=== PATIENT | male | born 1980 | race Two or more races ===

== ENCOUNTER 2025-05-12 13:06 | Emergency (ER) | payer MEDICAID, SELFPAY ==
[2025-05-12 13:18] VITALS: BP 128/75; PULSE 77; RESP 20; TEMP 36.8; O2SAT 97
--- NOTE | 2025-05-12 13:44 | PD.EDRME ---
Rapid Medical Screening Exam RME Arrival date/time: 05/12/25 13:06 Chief Complaint: Skin/Abscess/Foreign Body Vital signs: Vital Signs Temperature 98.3 F 05/12/25 13:18 Pulse Rate 77 05/12/25 13:18 Respiratory Rate 20 05/12/25 13:18 Blood Pressure 128/75 05/12/25 13:18 Pulse Oximetry (%) 97 05/12/25 13:18 Oxygen Delivery Method Room Air 05/12/25 13:18 Pulse ox room air is 97% Vital signs reviewed by provider: Yes RME Narrative: Patient complains of a large mass to the gluteal cleft that has been ongoing x 3 days.
--- NOTE | 2025-05-12 14:01 | EDNOTE_ITS ---
ED Skin Abcess FB-RME/HPI General Chief complaint: Skin/Abscess/Foreign Body Stated complaint: Abscess X 3 days to buttocks Source: patient Arrival date/time: 05/12/25 13:06 Mode of arrival: ambulatory Limitations: no limitations RME / HPI RME / HPI narrative: Patient complains of a large mass to the gluteal cleft that has been ongoing x 3 days. MD complaint: rash and abscess/boil Onset (ago): day(s) (3 days) Tetanus up to date: yes Location: generalized and buttocks Severity scale (1-10): 7 Relieving factors: immobilization Exacerbating factors: movement Related Data Previous Rx's ?Medication ?Instructions ?Recorded cephalexin 500 mg capsule 500 mg PO Q6H PRN Cellulitis #40 05/12/25 caps ibuprofen 800 mg tablet 800 mg PO Q8H PRN pain #30 t abs 05/12/25 phenylephrine 0.25 %-mineral oil 1 applic NC QAM #57 g ed 05/12/25 14 %-petrolatm 74.9 % rectal ointment (Preparation H) Allergies Allergy/AdvReac Type Severity Reaction Status Date / Time No Known Allergies Allergy Verified 05/12/25 13:10 Review of Systems Constitutional Constitutional: Reports system reviewed and no additional complaints, except as documented Eyes Eyes: Reports system reviewed and no additional complaints, except as documented, Denies dry eyes, Denies exophthalmos and Reports floaters Cardiovascular Cardiovascular: Denies chest pain with activity and Denies claudication ED Exam Narrative Physical exam: At the gluteal cleft there is a rather large mass that is approximately 4 cm oblong. It is proximal to the left buttocks. It is tender to palpation. It does not appear to be thrombosed. Is pink and tender to palpation. In the right buttocks there is an mobile mass that is tender to palpation. General Limitations: Present no limitations General appearance: Present alert and in no apparent distress Head Head exam: Present atraumatic Eye Eye exam: Present normal appearance, PERRL and EOMI ENT ENT exam: Present normal exam, normal oropharynx and mucous membranes moist Neck Neck exam: Present normal inspection Rectal Exam Rectal exam: Present deferred Extremities Exam Extremities exam: Present normal inspection and full ROM Back Exam Back exam: Present normal inspection and full ROM Neurological Exam Neurological exam: Present alert and oriented X3 Psychiatric Psychiatric exam: Present normal affect and normal mood Skin Skin exam: Present warm, dry, intact and normal color Course Quality Measures none Vital Signs Vital signs: Vital Signs Temperature 98.3 F 05/12/25 13:18 Pulse Rate 77 05/12/25 13:18 Respiratory Rate 20 05/12/25 13:18 Blood Pressure 128/75 05/12/25 13:18 Pulse Oximetry (%) 97 05/12/25 13:18 Oxygen Delivery Method Room Air 05/12/25 13:18 Skin / Abscess / Foreign Body MDM Narrative MDM Narrative:: Patient is to a ash conveyor operator for proper care and guidance and possibly removal as necessary. He is to do this is soon as possible. In the meantime I will send him a prescription for Preparation H. For the abscess I will send him a prescription for cephalexin. He will be discharged in no apparent distress. Patient data External records reviewed:: Other (specify) (NA) Clinical information provided by:: patient Social determinants that could affect healthcare access:: none (NA) Patient has the following chronic illnesses:: NA How is presenting disease/condition affected by chronic disease/condition?: no chronic disease (NO CHRONIC DZ) Evaluation data The following diagnostics were reviewed and interpreted by me:: other (specify) (No labs or radiology) Lab and/or radiology exams considered but not ordered:: NA Interpretation Summary: NA Medications / Prescriptions Medications or Prescriptions considered but not ordered:: NA Medication administrations:: NA Consultations Consultation(s) initiated? (list below): No Diagnosis Skin/Abscess Differential Diagnosis: abscess of skin or subcutaneous tissue, viral exanthem, dermatophytosis, urticaria, herpes zoster and allergic reaction to drug Most likely diagnosis given after review of the tests above:: NA Admission Indicated Admission indicated?: not indicated Admission Request Was there a request for admission?: No Admission Attestation Admission request attestation: NA Disposition Plan Disposition Plan: Discharge Discharge Attestation Discharge Attestation: The patient and all family members were given an opportunity to ask questions and understood the discharge instructions. Discharge instructions specifically effects, indications for sooner follow up or return to the emergency department, and the expected course of current diagnosis. Patient condition: Stable Discharge Plan Plan Patient Disposition: HOME (Self Care) Discharge Disposition comment: Discharge no apparent distress Patient condition on transfer: Stable Prescriptions/Referrals Prescriptions/Med Rec: New Preparation H 0.25-14-74.9 % ointment 1 applic NC QAM Qty: 57 0RF cephalexin 500 mg capsule 500 mg PO Q6H PRN (Reason: Cellulitis) Qty: 40 0RF ibuprofen 800 mg tablet 800 mg PO Q8H PRN (Reason: pain) Qty: 30 0RF Problem List Clinical Impression: External hemorrhoids, Cellulitis Patient/Caregiver Discharge Instructions Discharge Activity: activity as tolerated Print Language: Arabic Stand Alone Forms: [employer] Award Info., Work/School Release, Patient Portal Info Letter
== END 2025-05-12 14:18 | disposition home or self-care (01) ==
PROVIDERS: Emergency Provider Emergency Medicine
DX: L03.317 Cellulitis of buttock (principal); K64.4 Residual hemorrhoidal skin tags
CPT/HCPCS: 99283

== ENCOUNTER 2025-08-15 07:34 | Day surgery (SDC) | payer MEDICAID, SELFPAY ==
[2025-08-15] VITALS (11 sets, daily range): BP systolic 103–150; BP diastolic 51–96; PULSE 62–81; RESP 12–18; TEMP 36.2–36.8; O2SAT 95–100; BMI 35.7
--- NOTE | 2025-08-15 07:54 | PD.EDSKIN ---
ED Skin Abcess FB-RME/HPI General Chief complaint: Skin/Abscess/Foreign Body Stated complaint: sent by Dr. Carrero for outpatient surgery, I&D Time Seen by Provider: 08/15/25 07:40 Arrival date/time: 08/15/25 07:34 44-year-old male with history of diabetes presents to the Emergency Department today for complaints of abscess to the right buttock patient reports symptom onset 2 weeks ago patient was sent by general surgeon for admission. Limitations: no limitations Related Data Previous Rx's ?Medication ?Instructions ?Recorded cephalexin 500 mg capsule 500 mg PO Q6H PRN Cellulitis #40 05/12/25 caps ibuprofen 800 mg tablet 800 mg PO Q8H PRN pain #30 tabs 05/12/25 phenylephrine 0.25 %-mineral oil 1 applic DE QAM #57 grams 05/12/25 14 %-petrolatm 74.9 % rectal ointment (Preparation H) Allergies Allergy/AdvReac Type Severity Reaction Status Date / Time No Known Allergies Allergy Verified 08/15/25 07:38 Review of Systems Review of Systems Systems Reviewed: All systems reviewed, normal except as documented Constitutional Constitutional: Reports system reviewed and no additional complaints, except as documented, Denies fever(s) and Denies headache(s) Eyes Eyes: Reports system reviewed and no additional complaints, except as documented and Denies blurry vision ENT Ears, Nose, Mouth, and Throat: Reports system reviewed and no additional complaints, except as documented, Denies headache(s), Denies nasal congestion and Denies nasal discharge Cardiovascular Cardiovascular: Reports system reviewed and no additional complaints, except as documented, Denies chest pain and Denies dyspnea Respiratory Respiratory: Reports system reviewed and no additional complaints, except as documented, Denies chest congestion, Denies cough and Denies dyspnea Gastrointestinal Gastrointestinal: Reports system reviewed and no additional complaints, except as documented and Denies abdominal pain Integumentary/Breasts Skin/Breast: Reports system reviewed and no additional complaints, except as documented, Denies rash and Reports other (Abscess, erythema right buttock) Neurologic Neurologic: Reports system reviewed and no additional complaints, except as documented, Reports as per HPI and Denies headache(s) Past Medical History Past Medical History NEUROLOGIC: Negative Neurological Disorders CARDIAC: Positive Cardiac Disorders, Cardiac Arrhythmia, Hypercholesterolemia and Hypertension; Negative Congestive Heart Failure RESPIRATORY: Negative Chronic Obstructive Pulmonary Disease (COPD) or Asthma GASTROINTESTINAL: Negative Gastrointestinal Disorders GENITOURINARY: Negative Genitourinary Disorders or Renal Disease MUSCULOSKELETAL: Negative Musculoskeletal Disorders ENDOCRINE: Positive Endocrine Disorders and Diabetes Mellitus Type 2; Negative Diabetes Mellitus Type 1 HEMATOLOGIC: Negative Blood Disorders or Sickle Cell Disease Social History SMOKING STATUS: Former smoker SUBSTANCE USE: former substance user and crack/cocaine ED Exam General Limitations: Present no limitations General appearance: Present alert and in no apparent distress Head Head exam: Present atraumatic and normocephalic Eye Eye exam: Present normal appearance, PERRL and EOMI ENT ENT exam: Present normal exam, normal oropharynx and mucous membranes moist Neck Neck exam: Present normal inspection, full ROM and trachea midline Chest Chest inspection: Present normal inspection and symmetric chest wall rise Respiratory Respiratory exam: Present normal lung sounds bilaterally Cardiovascular Cardiovascular exam: Present regular rate, normal rhythm and normal heart sounds Abdominal Exam Abdominal exam: Present soft and normal bowel sounds Extremities Exam Extremities exam: Present normal inspection and full ROM Back Exam Back exam: Present normal inspection and full ROM Neurological Exam Neurological exam: Present alert, oriented X3 and CN II-XII intact Psychiatric Psychiatric exam: Present normal affect and normal mood Skin Skin exam: Present warm, dry and other (Abscess right buttock) Course Quality Measures none Orders Category Date Time Status Patient Condition Routine Admission 08/15/25 09:[address] in Surgical Day Care Routine Admission 08/15/25 09:52 Active Activity as Tolerated Routine Care 08/15/25 09:52 Ordered COVID-19 Screening Questionnaire NOW Care 08/15/25 07:57 Active Decision to Admit X1 Care 08/15/25 07:56 Completed Insert IV NOW Care 08/15/25 07:57 Active Insert IV NOW Care 08/15/25 09:52 Active Obtain Written Consent For: NOW Care 08/15/25 09:52 Active Consult to General Surgery Stat Cons 08/15/25 07:57 Ordered A1C [Glycohemoglobin w (eAG)] Stat Lab 08/15/25 08:20 Completed CBC Stat Lab 08/15/25 08:20 Completed Comprehensive Metabolic Panel Stat Lab 08/15/25 08:20 Completed Partial Thromboplastin Time Stat Lab 08/15/25 08:20 Completed Prothrombin Time with INR Stat Lab 08/15/25 08:20 Completed Sodium Chloride 0.9% 1000 ml [Ns] 1,000 ml Med 08/15/25 10:00 Active IV 100 mls/hr ceFAZolin/D5W 2 GM IV [Ancef 2gm Ivpb] Med 08/15/25 07:56 Discontinued 2 gm in 100 ml IV X1 Code Status Routine Oth 08/15/25 09:52 Ordered Vital Signs Vital signs: Vital Signs Temperature 97.8 F 08/15/25 07:49 Pulse Rate 72 08/15/25 07:49 Respiratory Rate 18 08/15/25 07:49 Blood Pressure 127/75 08/15/25 07:49 Pulse Oximetry (%) 98 08/15/25 07:49 Oxygen Delivery Method Room Air 08/15/25 07:49 O2 saturation 98% room air within normal limits Skin / Abscess / Foreign Body MDM Narrative MDM Narrative:: 44-year-old male with history of diabetes presents to the Emergency Department today for complaints of abscess to the right buttock patient reports symptom onset 2 weeks ago patient was sent by general surgeon for admission. On exam patient well-appearing patient does not appear ill or toxic distress On exam patient has large abscess right buttock Consultation: I spoke with Dr. Carrero At time of admission patient is no distress Patient data External records reviewed:: [facility] previous records Clinical information provided by:: patient Social determinants that could affect healthcare access:: none Patient has the following chronic illnesses:: See history How is presenting disease/condition affected by chronic disease/condition?: exacerbated by Evaluation data The following diagnostics were reviewed and interpreted by me:: lab results Lab and/or radiology exams considered but not ordered:: Labs obtained Interpretation Summary: Reviewed by me Medications / Prescriptions Medications or Prescriptions considered but not ordered:: Given Medication administrations:: Medication Administration History Sodium Chloride (Ns) 1,000 mls @ 100 mls/hr IV .Q10H ADIN Stop: 09/14/25 09:59 Last Admin: 08/15/25 10:05 Dose: 100 mls/hr Documented By: VL Discontinued Medications Cefazolin Sodium (Ancef 2gm Ivpb) 2 gm in 100 mls @ 200 mls/hr IV X1 ONE Stop: 08/15/25 08:25 Last Infusion: 08/15/25 09:06 Dose: Infused Documented By: Admin: 08/15/25 08:26 Dose: 200 mls/hr Documented By: DB Given Consultations Consultation(s) initiated? (list below): No Diagnosis Skin/Abscess Differential Diagnosis: abscess of skin or subcutaneous tissue and cellulitis Most likely diagnosis given after review of the tests above:: Abscess Admission Indicated Admission indicated?: indicated Admission Request Was there a request for admission?: Yes Admission Attestation Admission request attestation: Discussed case with [] from Hospitalist service regarding admission. Discussed patients ED course, exam findings, labs, and radiology results. The Hospitalist [agrees,declines] to accept the patient for admission. Disposition Plan Disposition Plan: Admit Discharge Plan Plan Patient Disposition: Admit Acute Care w/in Hospital Discharge Disposition comment: Stable Problem List Clinical Impression: Abscess of buttock, right PA/WEBLOGIC ADMINISTRATOR Supervising Physician PA/WEBLOGIC ADMINISTRATOR Supervising Physician: Dr. abdalla
[2025-08-15] MEDS: ceFAZolin/D5W 2 GM IV 2 GM/100 ML BAG IV (08:26)
[2025-08-15 09:06] LABS: Basophils # (Auto) 0.1 Thou/mm3 (0.0-0.2); Basophils % (Auto) 1 % (0-2.5); Eosinophils # (Auto) 0.2 Thou/mm3 (0.0-0.5); Eosinophils % (Auto) 2 % (0-10); Hematocrit 36.9 % (41.0-53.0); Hemoglobin 12.2 g/dL (13.5-16.0); Immature Granulocytes Auto 0.08 Thou/mm3 (0.00-0.00); Lymphocytes # (Auto) 2.1 Thou/mm3 (1.0-4.8); Lymphocytes % (Auto) 18 % (10-50); Mean Corpuscular HGB Conc 33.1 g/dl (31.0-37.0); Mean Corpuscular Hemoglobin 27.1 pg (25.0-35.0); Mean Corpuscular Volume 82 fL (80-100); Monocytes # (Auto) 0.7 Thou/mm3 (0.0-0.8); Monocytes % (Auto) 6 % (0-12); Neutrophils # (Auto) 8.3 Thou/mm3 (1.8-7.7); Neutrophils % (Auto) 73 % (37-80); Nucleated Red Blood Cell # 0.00 Thou/mm3 (0.00-0.00); Nucleated Red Blood Cell % 0 /100 WBC (0); Platelet Count 301 Thou/mm3 (140-440); RDW Standard Deviation 41.3 fL (35.1-43.9); Red Blood Count 4.50 Miln/mm3 (4.50-5.90); White Blood Count 11.3 Thou/mm3 (3.8-10.6)
[2025-08-15 09:22] LABS: INR 1.0 (0.9-1.3); Partial Thromboplastin Time 37.2 Seconds (22.0-36.0); Prothrombin Time 10.4 Seconds (9.0-12.2)
[2025-08-15 09:26] LABS: Alanine Aminotransferase 20 U/L (10-49); Albumin, Serum 4.3 gm/dL (3.5-5.0); Albumin/Globulin Ratio 1.5 (1.2-2.2); Alkaline Phosphatase 78 U/L (46-116); Anion Gap 10 (7-16); Aspartate Amino Transferase 20 U/L (0-34); BUN/Creatinine Ratio 15 Ratio (12-20); Bilirubin,Total 0.7 mg/dL (0.3-1.2); Blood Urea Nitrogen 12 mg/dL (9-23); Calcium 9.3 mg/dL (8.3-10.6); Calcium (Corrected) 9.3 mg/dL (8.5-10.1); Carbon Dioxide 26.0 mMol/L (20.0-31.0); Chloride 104 mMol/L (98-107); Creatinine (Component) 0.8 mg/dL (0.6-1.3); Estimated Creatinine Clearance 138.0 mL/min (>60); Globulin 2.8 gm/dL (2.3-3.5); Glucose 93 mg/dL (74-106); Osmolality,Calculated 279 (275-295); Potassium 3.7 mMol/L (3.4-5.1); Sodium 140 mMol/L (136-145); Total Protein 7.1 gm/dL (5.7-8.2); eGFR > 60 See Note
[2025-08-15 09:36] LABS: Glucose Estimated Average 128 mg/dL (80-131); Hemoglobin A1C 6.1 % Hgb (4.8-6.0)
[2025-08-15] MEDS: SODIUM CHLORIDE 0.9% 1000 ML 1,000 ML 100 ML IV (10:05)
--- NOTE | 2025-08-15 10:23 | CHAP ---
Patiebt expressed gratitude for prayer.
--- NOTE | 2025-08-15 14:22 | PC.NURSE ---
PATIENT TAKEN TO SURGERY VIA SURGICAL GURNEY
--- NOTE | 2025-08-15 15:38 | PD.SUROPNT ---
Date of Procedure 08/15/25 Pre Op Diagnosis Chronic abscess right buttock Post Op Diagnosis Same possibly a carbuncle of the right buttock Procedure Incision and drainage and extensive debridement of granulation tissue from the right buttock Findings Patient was found to have considerable inflammation of the subcutaneous tissue with hardening in addition to the abscess. Procedure Description Of the patient was brought to the operating room endotracheal anesthesia was given. He was placed in prone position. Wound was prepped and draped. Timeout was performed. The made incision over the right buttock then some purulent material was drained and it was cultured. Then explored the wound and found out that the patient had considerable amount of subcutaneous tissue occupied with the granulation tissue. They were hard and was difficult to remove. Obviously this is due to chronic inflammation even though the abscess is only 2 weeks old. There are multiple pustules on the skin showing it is a chronic infection and diabetic which is called carbuncle. After extensive debridement the wound was washed with saline solution and the bleeding points. Then it was packed with fluff and patient tolerated the procedure well Anesthesia GETA Pathology / specimen Other (Tissue was removed from the carbuncle right) Estimated Blood Loss 100 Surgeon Jace Dubois MD Surgical Staff Operation Date: 08/15/25 15:15 Case Staff Anesthesiologist: Toy Rodas
--- NOTE | 2025-08-15 15:46 | SUR.PHASEI ---
pt received from OR in recovery bay 1. pt asleep but responds to voice, breathing unlabored on 4l nc. v/s stable. pt dressing right buttocks cdi. report received from Dr. Rodas and Gagan DARLING.
--- NOTE | 2025-08-15 16:13 | PC.CC ---
Daniel Brown is a 44-year-old male admitted for Abscess over the right buttock. Percussion Tuner made contact with Pt at bedside to complete initial and discuss discharge disposition. Role and reason for the contact was explained to Pt. Demographic information was verified. Pt identified his Carlota Summers [phone] as his surrogate decision maker. Pt is independent with all ADLs. Pt does not utilizes DME. Pt?s choice of pharmacy is [facility] [place] [address]. PCP is Rosaura Marie. Pt reports seeing at electrical machinist doc unknow in [facility]. At time of discharge patient will return home, family will provide transportation. Discharge Plan: Home Next of Kin: Carlota Summers [phone] PCP: Rosaura Marie
[2025-08-15] MEDS: fentaNYL CIT INJ 50 mCg/ML AMP 2ML IVP (16:21)
--- NOTE | 2025-08-15 16:28 | SUR.PHASEII ---
Report given to Clarice DARLING at this time.
--- NOTE | 2025-08-15 16:28 | SUR.PHASEII ---
pt able to tolerate oral fluids without difficulty swallowing or nausea/vomiting.
== END 2025-08-15 16:50 | disposition home or self-care (01) ==
LOC: SERX 08:47 → S2EX 10:43
PROVIDERS: Nurse Practitioner Primary Care; Emergency Provider Family Medicine; PCP Nurse Practitioner Family; Referring Provider Surgery; Visit Provider Surgery
PROC: (CPT 10060; principal; 2025-08-15 15:15)
DX: L02.31 Cutaneous abscess of buttock (principal)
CPT/HCPCS: 10060; 36415; 80053; 83036; 85025; 85610; 85730; 87070; 87205; A4649; J0330; J0689; J0690; J1100; J1885; J2405; J2704; J3010; J3490; J7030